=== PATIENT | female | born 1935 | race Caucasian/White ===

== ENCOUNTER 2017-12-25 08:15 | Day surgery (SDC) | payer OTHER ==
[~2017-12-25] VITALS: Ht 152.4 cm; Wt 72.0 kg
[~2017-12-25 08:15] MED LIST: HYDACE5 PO; SIMV80; TRIA15CR3; ZESTORETIC 20-121 EA
== END 2017-12-25 10:50 | disposition home or self-care (01) ==
LOC: ORSCSDS 08:15
PROVIDERS: Internal Medicine Gastroenterology
PROC: 0DBK8ZX Excision of Ascending Colon, Via Natural or Artificial Opening Endoscopic, Diagnostic (ICD-10-PCS; principal; 2017-12-25 09:45)
PROC: 0DBH8ZX Excision of Cecum, Via Natural or Artificial Opening Endoscopic, Diagnostic (ICD-10-PCS; principal; 2017-12-25 09:45)
PROC: 0DBM8ZX Excision of Descending Colon, Via Natural or Artificial Opening Endoscopic, Diagnostic (ICD-10-PCS; principal; 2017-12-25 09:45)
DX: Z86.010 Personal history of colon polyps (principal); Z80.0 Family history of malignant neoplasm of digestive organs; D12.0 Benign neoplasm of cecum; D12.2 Benign neoplasm of ascending colon; D12.4 Benign neoplasm of descending colon; K57.30 Diverticulosis of large intestine without perforation or abscess without bleeding; I10 Essential (primary) hypertension; E78.00 Pure hypercholesterolemia, unspecified; Z79.899 Other long term (current) drug therapy
CPT/HCPCS: 88305; J7120

== ENCOUNTER 2018-04-20 09:07 | Emergency (ER) | payer OTHER ==
[~2018-04-20] VITALS: Ht 152.4 cm; Wt 72.1 kg
[~2018-04-20 09:07] MED LIST changes: -SIMV80; +SIMV80 PO; +ZESTORETIC 20-1 EACH PO; -ZESTORETIC 20-121 EA
[2018-04-20 09:56] LABS: Alanine Aminotransfer (ALT/SGP 25 U/L (12-78); Albumin, Blood 4.1 g/dL (3.4-5.0); Albumin/Globulin Ratio 1.1 (0.8-1.8); Alk Phos 50 U/L (50-136); Anion Gap 8 mmol/L (6-16); Aspartate Aminotrans (AST/SGOT 25 U/L (12-37); Bilirubin, Total 0.6 mg/dL (0.1-1.0); Blood Urea Nitrogen 16 mg/dL (8-24); Bun/Creatinine Ratio 20.6 (12.0-20.0); CO2, Blood 26 mmol/L (21-32); Calcium, Blood 8.7 mg/dL (8.5-10.1); Chloride, Blood 101 mmol/L (98-108); Creatinine, Blood 0.78 mg/dL (0.40-1.00); Globulin, Blood 3.6 g/dL (2.2-4.0); Glomerular Filtration Rate >60 (60-); Glucose, Blood 133 mg/dL (70-99); Potassium, Blood 3.6 mmol/L (3.5-5.5); Sodium, Blood 135 mmol/L (136-145); Total Protein, Blood 7.7 g/dL (6.4-8.2)
[2018-04-20 09:58] LABS: BASOPHILS PERCENT AUTO 0 % (0-2); EOSINOPHILS ABSOLUTE AUTO 0.02 K/mm3 (0.00-0.68); EOSINOPHILS PERCENT AUTO 0 % (0-6); Hemoglobin 12.1 g/dL (11.5-16.0); IMMATURE GRAN ABSOLUTE AUTO 0.03 K/mm3 (0.00-0.10); IMMATURE GRAN PERCENT AUTO 0 % (0-1); LYMPHOCYTES ABSOLUTE AUTO 1.29 K/mm3 (0.84-5.20); LYMPHOCYTES PERCENT AUTO 12 % (21-46); MONOCYTES ABSOLUTE AUTO 0.74 K/mm3 (0.16-1.47); MONOCYTES PERCENT AUTO 7 % (4-13); Mean Corpuscular HGB Conc 33.6 g/dL (31.5-36.5); Mean Corpuscular Volume 89 fL (80-100); NEUTROPHILS ABSOLUTE AUTO 8.81 K/mm3 (1.96-9.15); NEUTROPHILS PERCENT AUTO 81 % (41-73); Platelet Count 282 K/mm3 (150-400); RDW Standard Deviation 42.9 fL (35.1-46.3); Red Blood Cell Count 4.03 M/mm3 (3.80-5.20); White Blood Cell Count 10.89 K/mm3 (4.00-11.30)
[2018-04-20 10:41] LABS: Source, Urine Clean Catch
[2018-04-20 10:43] LABS: Bilirubin, Urine Neg (Neg); Blood, Urine 2+ (Neg); Glucose Qualitative, Urine Neg (Neg); Ketones, Urine Neg (Neg); Leukocyte Esterase, Urine Neg (Neg); Nitrite, Urine Neg (Neg); Protein, Urine Neg (Neg); Urobilinogen, Urine NORM (Normal)
[2018-04-20] MEDS ORDERED: HYDR1TAB94 PO (10:44)
[2018-04-20] MEDS ORDERED: Augmentin 875-1 EACH PO (10:44)
[2018-04-20 10:47] LABS: Appearance, Urine Clear (Clear); Color, Urine Yellow (P-Yellow)
[2018-04-20 10:52] LABS: Bacteria Rare /hpf; Mucus Light (0-Heavy); Red Blood Cells, Urine 0-2 /hpf (0-2); Squamous Epithelial Cells Rare /hpf (Few); White Blood Cells, Urine 0-2 /hpf (0-5)
== END 2018-04-20 11:38 | disposition home or self-care (01) ==
LOC: ER 09:07
PROVIDERS: Emergency Medicine
DX: K57.32 Diverticulitis of large intestine without perforation or abscess without bleeding (principal); M51.36 Other intervertebral disc degeneration, lumbar region; Z79.899 Other long term (current) drug therapy
CPT/HCPCS: 36415; 74176; 80053; 81001; 83690; 85025; 96365; 99284-25; J0295

== ENCOUNTER 2019-07-23 08:44 | Day surgery (SDC) | payer OTHER ==
[~2019-07-23] VITALS: Ht 152.4 cm; Wt 71.1 kg
[~2019-07-23 08:44] MED LIST changes: +ASPI325 PO; +Augmentin 875-1 EACH PO; +CLON.1 PO; +HYDR1TAB94 PO; +Inderal60 MG PO; +Lopressor 25 mg25 MG PO; +PROLIA60 MG/1 ML
[2019-08-31] MEDS ORDERED: ASPI325 PO (10:11)
[2019-08-31] MEDS ORDERED: PROLIA60 MG/1 ML SC (10:13)
[2019-08-31] MEDS ORDERED: PROP60 PO (10:14)
[2019-08-31] MEDS ORDERED: Prinivil10 MG PO (10:14)
[2019-08-31] MEDS ORDERED: SIMV80 PO (10:15)
[2019-08-31] MEDS ORDERED: METO25 PO (10:15)
[2019-08-31] MEDS ORDERED: CLON.1 PO (10:22)
[2019-08-31] MEDS ORDERED: FURO40 PO (10:23)
[2019-08-31] MEDS ORDERED: ZOLP12.5 PO (10:24)
[2019-08-31] MEDS ORDERED: PARI1 PO (10:25)
[2019-08-31] MEDS ORDERED: NAPR220 PO (10:27)
[2019-08-31] MEDS ORDERED: ZESTORETIC 20-121 EA PO (10:28)
== END 2019-07-23 10:40 | disposition home or self-care (01) ==
LOC: ORSCSDS 08:44
PROVIDERS: Surgery
PROC: 0DJ08ZZ Inspection of Upper Intestinal Tract, Via Natural or Artificial Opening Endoscopic (ICD-10-PCS; principal; 2019-07-23 10:00)
DX: K44.9 Diaphragmatic hernia without obstruction or gangrene (principal); E78.00 Pure hypercholesterolemia, unspecified; K29.70 Gastritis, unspecified, without bleeding; I10 Essential (primary) hypertension; Z79.82 Long term (current) use of aspirin; Z79.899 Other long term (current) drug therapy; E11.21 Type 2 diabetes mellitus with diabetic nephropathy
CPT/HCPCS: 82947; 88305; J2704; J7120

== ENCOUNTER 2019-09-02 07:28 | Observation (INO) | payer OTHER ==
[~2019-09-02] VITALS: Ht 152.4 cm; Wt 69.1 kg
[~2019-09-02 07:28] MED LIST changes: +FURO40 PO; +METO25 PO; +NAPR220 PO; +PARI1 PO; +PROLIA60 MG/1 ML SC; +PROP60 PO; +Prinivil10 MG PO; +ZESTORETIC 20-121 EA PO; +ZOLP12.5 PO
--- NOTE | 2019-09-02 08:23 | NUR ---
Ambulatory in Day Surgery. Surgical site prepped with 2% Chlorhexidine cloth wipe. History, Chart, Medications and Allergies reviewed before start of procedure. Lungs clear T/O to Auscultation. Patient confirms NPO status and agrees with scheduled surgery. Pre-Op teaching done. Pt verbalizes understanding. Patient reports completing Chlorhexadine shower X2 prior to admission to hospital.
[2019-09-02] MEDS ORDERED: PROLIA60 MG/1 ML SC (08:39)
--- NOTE | 2019-09-02 16:25 | NUR ---
PT REPORTS DISCOMFORT IN HER UPPER CHEST AREA. STATES IT HURTS WITH DEEP BREATHING/COUGHING. DENIES RADIATING PAIN TO EXTREMETIES OR SOB. IS A/OX4 WITH VS AT BASELINE. DOCTOR STUART AWARE, NO NEW ORDERS AT THIS TIME. MEDICATED PER EMAR AND EDUCATED PT ON BREATHING EXERCISES. PT CURRENTLY WATCHING TV WITH CALL LIGHT IN HAND.
--- NOTE | 2019-09-02 16:25 | NUR ---
DR. DAVIDSON IN TO SEE PT AT THIS TIME. NO NEW ORDERS AT THIS TIME.
--- NOTE | 2019-09-02 16:35 | NUR ---
PT REPORTS CP IS AT TOLERABLE LEVEL SINCE IV MEDICATION ADMINISTRATION. IS ABLE TO TAKE DEEP BREATHS AND COUGH W/OUT DISCOMFORT NOW. CURRENTLY WATCHING TV WITH CALL LIGHT IN HAND. WCT
--- NOTE | 2019-09-02 17:12 | NUR ---
SHIFT SUMMARY POD 0 S/P LAP HARINDER FUNDOPLICATION. ABD LAP SITES 5X CLEAN, DRY, AND CLOSED W/OUT ANY DRAINAGE NOTED. PT IS A/0X4 WITH VS WITHIN BASELINE. REPORTS PAIN AT TOLERABLE LEVEL, MEDICATED ONCE W/IV FENT AND ZOFRAN; HAS IVF RUNNING PER ORDERS. AMBULATED TO BATHROOM WITH SBA, TOLERATED WELL. CURRENTLY NPO. HAS PAS TO BLE IN PLACE. CURRENTLY VISTITING WITH FAMILY IN ROOM WITH CALL LIGHT IN REACH. WILL CTM AND GIVE REPORT TO ONCOMING RN.
--- NOTE | 2019-09-03 04:12 | NUR ---
SHIFT SUMMARY POD 1 LAP HARINDER FUNDOPLICATION AA0X4, VSS. 5 LAP SITES CDI. PATIENT DENIES NAUSEA DURING SHIFT. SHE HAS DENIED PAIN DURING SHIFT WELL. PATIENT AMBULATES WELL TO RESTROOM TO VOID. REPORTS SOME DIZZINESS UPON FIRST SITTING/STANDING UP. PT STATES THIS IS BASELINE. PT TOLERATING SMALL SIPS OF WATER AND ICE WELL. RESTING IN BED DURING SHIFT, PT REPORTS SLEEPING WELL.
[2019-09-03 04:29] LABS: BASOPHILS PERCENT AUTO 0 % (0-2); EOSINOPHILS PERCENT AUTO 0 % (0-6); Hematocrit 36.3 % (33.0-51.0); Hemoglobin 11.9 g/dL (11.5-16.0); IMMATURE GRAN ABSOLUTE AUTO 0.05 K/mm3 (0.00-0.10); IMMATURE GRAN PERCENT AUTO 1 % (0-1); LYMPHOCYTES ABSOLUTE AUTO 1.04 K/mm3 (0.84-5.20); LYMPHOCYTES PERCENT AUTO 10 % (21-46); MONOCYTES PERCENT AUTO 9 % (4-13); Mean Corpuscular HGB 29.6 pg (26.0-34.0); Mean Corpuscular HGB Conc 32.8 g/dL (31.5-36.5); Mean Corpuscular Volume 90 fL (80-100); Mean Platelet Volume 9.6 fL (9.1-12.4); NEUTROPHILS ABSOLUTE AUTO 8.66 K/mm3 (1.96-9.15); NEUTROPHILS PERCENT AUTO 81 % (41-73); Platelet Count 280 K/mm3 (150-400); RDW Coefficient Variation 12.5 % (11.7-14.2); RDW Standard Deviation 41.4 fL (35.1-46.3); Red Blood Cell Count 4.02 M/mm3 (3.80-5.20); White Blood Cell Count 10.75 K/mm3 (4.00-11.30)
[2019-09-03 04:51] LABS: Anion Gap 9 mmol/L (6-16); Blood Urea Nitrogen 15 mg/dL (8-24); Bun/Creatinine Ratio 23.5 (12.0-20.0); CO2, Blood 21 mmol/L (21-32); Chloride, Blood 105 mmol/L (98-108); Creatinine, Blood 0.64 mg/dL (0.40-1.00); Glomerular Filtration Rate >60 (60-); Glucose, Blood 125 mg/dL (70-99); Potassium, Blood 4.1 mmol/L (3.5-5.5); Sodium, Blood 135 mmol/L (136-145)
--- NOTE | 2019-09-03 18:12 | NUR ---
SHIFT SUMMARY PATIENT UP WITH SBA TO BR AND AMBULATE. APAP ADMIN WITH GOOD RESULTS PER PATIENT FOR THROAT/EPIGASTRIC DISCOMFORT. TOLERATING CL W/O C/O NAUSEA. VOIDING. ABD LAP SITES C&D. PLAN FOR ADVANCE DIET IN AM PER DR DAVIDSON. NO ACUTE CHANGES OR C/O.
--- NOTE | 2019-09-04 04:08 | NUR ---
SHIFT SUMMARY POD 2. AAOX4 VSS. PT HAS DENIED NAUSEA AND PAIN DURING SHIFT. TOLERATING CLEAR LIQUID WELL. HAS BEEN DRINKING WATER DURING NIGHT. PT UP TO VOID MULTIPLE TIMES DURING SHIFT. CALLS APPROPRIATLY. AMBULATES WELL WITH SBY ASSIST. 5 LAP SITES CDI.
[2019-09-04] MEDS ORDERED: ACET325 PO (12:25)
--- NOTE | 2019-09-04 12:55 | NUR ---
PATIENT D/C'D HOME AT THIS TIME WITH FRIEND; STATES UNDERSTANDING OF DIET, ACTIVITY, WOUND CARE, MEDS, F/U APPT, ETC. TOLERATING FL DIET W/O PAIN OR NAUSEA. VOIDING. UP TO SHOWER THIS AM. NO ACUTE CHANGES OR C/O.
== END 2019-09-04 13:05 | disposition home or self-care (01) ==
LOC: ORSCMMR 07:28 → ORD 09:00 → ORSCMMR 12:29 → SURS 12:29
PROVIDERS: ADMIT Surgery
PROC: 0BQT4ZZ Repair Diaphragm, Percutaneous Endoscopic Approach (ICD-10-PCS; principal; 2019-09-02 09:00)
PROC: 0DV44ZZ Restriction of Esophagogastric Junction, Percutaneous Endoscopic Approach (ICD-10-PCS; principal; 2019-09-02 09:00)
DX: K44.9 Diaphragmatic hernia without obstruction or gangrene (principal); K42.0 Umbilical hernia with obstruction, without gangrene; I12.9 Hypertensive chronic kidney disease with stage 1 through stage 4 chronic kidney disease, or unspecified chronic kidney disease; N18.9 Chronic kidney disease, unspecified; E66.9 Obesity, unspecified; Z01.810 Encounter for preprocedural cardiovascular examination; Z01.812 Encounter for preprocedural laboratory examination; Z79.82 Long term (current) use of aspirin; Z79.899 Other long term (current) drug therapy; Z87.891 Personal history of nicotine dependence; Z68.31 Body mass index [BMI] 31.0-31.9, adult
CPT/HCPCS: 36415; 80048; 85025; 86850; 86900; 86901; 96360; 96361; 96372; A9270; G0378; J0690; J1100; J1650; J2370; J2405; J2704; J3010; J7120

== ENCOUNTER 2021-11-14 13:47 | Emergency (ER) | payer OTHER ==
[~2021-11-14] VITALS: Ht 152.4 cm; Wt 59.0 kg
[~2021-11-14 13:47] MED LIST changes: +ACET325 PO
[2021-11-14 14:18] LABS: BASOPHILS ABSOLUTE AUTO 0.03 K/mm3 (0.00-0.23); BASOPHILS PERCENT AUTO 0 % (0-2); EOSINOPHILS ABSOLUTE AUTO 0.08 K/mm3 (0.00-0.68); EOSINOPHILS PERCENT AUTO 1 % (0-6); Hematocrit 34.4 % (33.0-51.0); Hemoglobin 11.3 g/dL (11.5-16.0); IMMATURE GRAN ABSOLUTE AUTO 0.12 K/mm3 (0.00-0.10); IMMATURE GRAN PERCENT AUTO 2 % (0-1); LYMPHOCYTES ABSOLUTE AUTO 1.72 K/mm3 (0.84-5.20); LYMPHOCYTES PERCENT AUTO 22 % (21-46); MONOCYTES ABSOLUTE AUTO 1.15 K/mm3 (0.16-1.47); MONOCYTES PERCENT AUTO 15 % (4-13); Mean Corpuscular HGB 29.9 pg (26.0-34.0); Mean Corpuscular HGB Conc 32.8 g/dL (31.5-36.5); Mean Corpuscular Volume 91 fL (80-100); Mean Platelet Volume 9.7 fL (9.1-12.4); NEUTROPHILS ABSOLUTE AUTO 4.78 K/mm3 (1.96-9.15); NEUTROPHILS PERCENT AUTO 61 % (41-73); Platelet Count 285 K/mm3 (150-400); RDW Coefficient Variation 12.8 % (11.7-14.2); Red Blood Cell Count 3.78 M/mm3 (3.80-5.20); White Blood Cell Count 7.88 K/mm3 (4.00-11.30)
[2021-11-14 14:42] LABS: Alanine Aminotransfer (ALT/SGP 45 U/L (12-78); Albumin, Blood 3.4 g/dL (3.4-5.0); Alk Phos 76 U/L (50-136); Anion Gap 8 mmol/L (6-16); Aspartate Aminotrans (AST/SGOT 40 U/L (12-37); Bilirubin, Total 0.3 mg/dL (0.1-1.0); Blood Urea Nitrogen 9 mg/dL (8-24); Bun/Creatinine Ratio 12.8 (12.0-20.0); CO2, Blood 22 mmol/L (21-32); Calcium, Blood 8.5 mg/dL (8.5-10.1); Chloride, Blood 107 mmol/L (98-108); Globulin, Blood 3.3 g/dL (2.2-4.0); Glomerular Filtration Rate >60 (60-); Glucose, Blood 87 mg/dL (70-99); Magnesium, Blood 2.2 mg/dL (1.6-2.4); Potassium, Blood 3.9 mmol/L (3.5-5.5); Sodium, Blood 137 mmol/L (136-145); Total Protein, Blood 6.7 g/dL (6.4-8.2)
[2021-11-14 15:51] LABS: Source, Urine Clean Catch
[2021-11-14 15:58] LABS: Bilirubin, Urine Neg (Neg); Blood, Urine 1+ (Neg); Glucose Qualitative, Urine Neg (Neg); Ketones, Urine 1+ (Neg); Leukocyte Esterase, Urine 2+ (Neg); Nitrite, Urine Neg (Neg); Protein, Urine 2+ (Neg); Urobilinogen, Urine NORM (Normal)
[2021-11-14 16:04] LABS: Appearance, Urine Hazy (Clear); Color, Urine Pale Yellow (P-Yellow)
[2021-11-14 16:05] LABS: Bacteria Many /hpf; Squamous Epithelial Cells Few /hpf (Few)
[2021-11-14 16:06] LABS: Mucus Light (0-Heavy); Renal Epithelial Rare /hpf (0-Rare); Yeast/Fungi Urine Rare /hpf
[2021-11-14] MEDS ORDERED: CEPH500 PO (17:26)
== END 2021-11-14 17:52 | disposition home or self-care (01) ==
LOC: ER 13:47
PROVIDERS: Physician Assistant
DX: K52.9 Noninfective gastroenteritis and colitis, unspecified (principal); N39.0 Urinary tract infection, site not specified; Z79.899 Other long term (current) drug therapy
CPT/HCPCS: 36415; 74177; 80053; 81001; 83690; 83735; 85025; 87086; 99284-25; A9270; Q9967

== ENCOUNTER → 2021-11-15 | Outpatient (CLI) | payer OTHER ==
[~2021-11-15] MED LIST changes: +CEPH500 PO
[2021-11-15 12:53] LABS: Adenovirus F 40/41 Not Detected (NOT DETECT); Astrovirus Not Detected (NOT DETECT); Campylobacter Sp Not Detected (NOT DETECT); Cryptosporidium Not Detected (NOT DETECT); Cyclospora Cayetanensis Not Detected (NOT DETECT); E. Coli O157 Not Detected (NOT DETECT); Entamoeba Histolytica Not Detected (NOT DETECT); Enteroaggregative E. coli-EAEC Not Detected (NOT DETECT); Enteropathogenic E. coli-EPEC Not Detected (NOT DETECT); Enterotoxigenic E. coli-ETEC Not Detected (NOT DETECT); Giardia Lamblia Not Detected (NOT DETECT); Norovirus GI/GII Not Detected (NOT DETECT); Plesiomonas Shigelloides Not Detected (NOT DETECT); Rotavirus A Not Detected (NOT DETECT); Salmonella Sp Not Detected (NOT DETECT); Sapovirus Not Detected (NOT DETECT); Shiga Toxin-prod E. coli-STEC Not Detected (NOT DETECT); Shigella/Enteroin E. coli-EIEC Not Detected (NOT DETECT); Vibrio Cholerae Not Detected (NOT DETECT); Vibrio Sp Not Detected (NOT DETECT); Yersinia Enterocolitica Not Detected (NOT DETECT)
== END ==
LOC: LAB SHORT 06:30
PROVIDERS: Physician Assistant
DX: K52.9 Noninfective gastroenteritis and colitis, unspecified (principal); R10.9 Unspecified abdominal pain
CPT/HCPCS: 0097U

== ENCOUNTER → 2022-01-02 | Outpatient (CLI) | payer OTHER ==
[2022-01-02 08:13] LABS: Source, Urine Clean Catch
[2022-01-02 10:33] LABS: Appearance, Urine Hazy (Clear); Bilirubin, Urine Neg (Neg); Blood, Urine 2+ (Neg); Color, Urine Yellow (P-Yellow); Glucose Qualitative, Urine Neg (Neg); Ketones, Urine Neg (Neg); Leukocyte Esterase, Urine 3+ (Neg); Nitrite, Urine Neg (Neg); Protein, Urine 1+ (Neg); Specific Gravity, Urine 1.015 (1.003-1.022); Urobilinogen, Urine NORM (Normal)
[2022-01-02 10:58] LABS: Bacteria Many /hpf; Mucus Heavy (0-Heavy); Squamous Epithelial Cells Mod /hpf (Few)
[2022-01-02 10:59] LABS: Renal Epithelial Rare /hpf (0-Rare); Transitional Epithelial Cells Rare /hpf (0-Rare)
== END | disposition home or self-care (01) ==
LOC: LAB SHORT 08:11 → LAB 08:11
PROVIDERS: Internal Medicine
DX: N39.0 Urinary tract infection, site not specified (principal)
CPT/HCPCS: 81001; 87086

== ENCOUNTER → 2024-01-30 | Outpatient (CLI) | payer OTHER ==
[2024-01-30 11:48] LABS: Creatinine Urine 39.3 mg/dL (27.00-270.00); Protein, Urine Quantitative 7.1 mg/dL (0.0-11.9)
[2024-01-30 11:51] LABS: Microalbumin, Urine Quant. 5.97 mg/L (0.000-20.000)
== END | disposition home or self-care (01) ==
LOC: LAB 06:30 → LAB SHORT 06:30 → LAB FUT 01-27 12:45
PROVIDERS: Internal Medicine Nephrology
DX: N18.30 Chronic kidney disease, stage 3 unspecified (principal); D63.1 Anemia in chronic kidney disease; N25.81 Secondary hyperparathyroidism of renal origin; E55.9 Vitamin D deficiency, unspecified; E78.00 Pure hypercholesterolemia, unspecified; R76.9 Abnormal immunological finding in serum, unspecified; R94.5 Abnormal results of liver function studies; R94.6 Abnormal results of thyroid function studies
CPT/HCPCS: 81050; 82043; 82570; 84156

== ENCOUNTER → 2024-05-11 | Outpatient (CLI) | payer OTHER ==
[~2024-05-11] MED LIST changes: +MACRODANTIN100 M1 PO; +ONDA4ODT MM
[2024-05-11 11:43] LABS: Source, Urine Clean Catch
[2024-05-11 13:27] LABS: Appearance, Urine Clear (Clear); Bilirubin, Urine Neg (Neg); Blood, Urine Neg (Neg); Color, Urine Yellow (P-Yellow); Glucose Qualitative, Urine Neg (Neg); Ketones, Urine Neg (Neg); Leukocyte Esterase, Urine 1+ (Neg); Nitrite, Urine Neg (Neg); Protein, Urine 2+ (Neg); Specific Gravity, Urine 1.015 (1.003-1.022); Urobilinogen, Urine 1+ (Normal)
[2024-05-11 13:48] LABS: Bacteria Many /hpf; Red Blood Cells, Urine 0-2 /hpf (0-2); Squamous Epithelial Cells Few /hpf (Few)
== END | disposition home or self-care (01) ==
LOC: LAB SHORT 11:38 → LAB 11:38
PROVIDERS: Internal Medicine
DX: N39.0 Urinary tract infection, site not specified (principal)
CPT/HCPCS: 81001; 87086

== ENCOUNTER 2025-02-11 10:27 | Day surgery (SDC) | payer OTHER ==
[~2025-02-11] VITALS: Ht 124.5 cm; Wt 57.1 kg
[~2025-02-11 10:27] MED LIST changes: +Lactated Ringer's 1,000 ML IV ONE; +propofoL 50 ML IV ONE
[2025-02-11] MEDS ORDERED: ASPI81CH (11:22)
[2025-02-11] MEDS ORDERED: Lactated Ringer's 1,000 ML IV ONE (11:48)
[2025-02-11 13:14] VITALS: BP 138/86
== END 2025-02-11 13:07 | disposition home or self-care (01) ==
LOC: ORSCSDS 10:27
PROVIDERS: Specialist
PROC: 0DJ08ZZ Inspection of Upper Intestinal Tract, Via Natural or Artificial Opening Endoscopic (ICD-10-PCS; principal; 2025-02-11 12:00)
DX: R13.10 Dysphagia, unspecified (principal); E21.3 Hyperparathyroidism, unspecified; I12.9 Hypertensive chronic kidney disease with stage 1 through stage 4 chronic kidney disease, or unspecified chronic kidney disease; N18.9 Chronic kidney disease, unspecified; M19.90 Unspecified osteoarthritis, unspecified site; G25.0 Essential tremor; Z79.82 Long term (current) use of aspirin; Z79.899 Other long term (current) drug therapy
CPT/HCPCS: C1769; J2704; J7120